=== PATIENT | male | born 1975 | race Asian ===

== ENCOUNTER 2020-05-23 01:43 | Emergency (ER) | payer SELFPAY ==
[~2020-05-23] VITALS: Ht 180.3 cm; Wt 86.2 kg
[2020-05-23 01:55] VITALS: BP_SYST 134
--- NOTE | 2020-05-23 01:55 | NUR ---
Patient to ER bed 5 to gown for evaluation. Side rails up. Report given to
--- NOTE | 2020-05-23 02:00 | NUR ---
PT AAO AND AMBULATORY C/O BACK INJURY WHILE CLEANING GYM EQUIPMENT. PT REPORTS PRIOR MUSCLE ISSUE ON LEFT BACK BUT REPORTS IT WORSENED TODAY DURING EXERTION. PT REPORTS 10/10 PAIN.
--- NOTE | 2020-05-23 02:22 | NUR ---
ER at bedside examining patient.
--- NOTE | 2020-05-23 03:00 | NUR ---
Pt resting in ED bed. No acute distress without movement. Pt tolerating supine position well.
[2020-05-23] MEDS ORDERED: DIAZEPAM 10 MG/2 ML DISP.SYRIN IM ONE (03:30)
[2020-05-23] MEDS ORDERED: HYDROcodone/ACETAMIN 10-325 MG TAB PO ONE (03:45)
[2020-05-23] MEDS ORDERED: IBUPROFEN 800 MG TABLET PO ONE (03:45)
[2020-05-23] MEDS ORDERED: LORazepam 2 MG/ML VIAL IM ONE (05:30)
--- NOTE | 2020-05-23 05:43 | NUR ---
Pt still unable to Move after medications. Pt states pain still 10/10
--- NOTE | 2020-05-23 07:12 | NUR ---
report received from Joel HASSAN. Currently waiting for admission orders.
[2020-05-23] MEDS ORDERED: KETAMINE 30 MG/3 ML SYRINGE IVP ONE (07:30)
--- NOTE | 2020-05-23 07:50 | NUR ---
Patient transported to radiology via gurney, accompanied by small electric engine technician.
[2020-05-23 07:53] LABS: BILIRUBIN,URINE NEGATIVE (NEGATIVE); BLOOD, URINE NEGATIVE (NEGATIVE); CLARITY/URINE CLEAR (CLEAR); COLOR,URINE YELLOW (YELLOW); GLUCOSE,URINE NEGATIVE (NEGATIVE); KETONES,URINE NEGATIVE (NEGATIVE); LEUKOCYTE ESTERASE ,URINE NEGATIVE (NEGATIVE); NITRITE, URINE NEGATIVE (NEGATIVE); PROTEIN URINE NEGATIVE (NEGATIVE); UROBILINOGEN,URINE 0.2 (0.2-1.0)
--- NOTE | 2020-05-23 08:00 | NUR ---
Ketamine currently infusing per MD order. Will reassess
[2020-05-23 08:49] LABS: BASOPHILS % (AUTO) 0.5 % (0.0-2.0); EOSINOPHILS # (AUTO) 0.1 K/uL (0.0-0.4); EOSINOPHILS % (AUTO) 1.5 % (0.0-4.0); HEMATOCRIT 43.9 % (36-54); HEMOGLOBIN 14.9 g/dL (14.0-18.0); LYMPHOCYTES # (AUTO) 1.5 K/uL (1.0-5.5); LYMPHOCYTES % (AUTO) 23.8 % (20.5-51.5); MEAN CORPUSCULAR HEMOGLOBIN 32 pg (27-31); MEAN CORPUSCULAR HGB CONC 34 % (32-36); MEAN CORPUSCULAR VOLUME 94 fL (79.0-98.0); MONOCYTES # (AUTO) 0.4 K/uL (0.0-1.0); MONOCYTES % (AUTO) 6.7 % (1.7-9.3); NEUTROPHILS # (AUTO) 4.1 K/uL (1.8-7.7); NEUTROPHILS % (AUTO) 67.5 % (40.0-70.0); PLATELET COUNT (AUTO) 222 K/uL (130-430); RED BLOOD CELL COUNT(AUTO) 4.68 MIL/uL (4.2-6.2); WHITE BLOOD COUNT (AUTO) 6.1 K/uL (4.8-10.8)
[2020-05-23 09:07] LABS: CALCIUM 8.6 mg/dL (8.4-11.0); CREATININE 1.06 mg/dL (0.55-1.30); POTASSIUM 3.9 mmol/L (3.5-5.1)
--- NOTE | 2020-05-23 11:19 | NUR ---
Patient transported to radiology via gurney, accompanied by hvac controls technician.
--- NOTE | 2020-05-23 12:00 | NUR ---
pt returned from MRI
[2020-05-23] MEDS ORDERED: methylPREDNISolone SOD SUCC/PF 62.5 MG/ML VIAL IVP ONE (13:15)
[2020-05-23] MEDS ORDERED: KETOROLAC TROMETHAMINE 30 MG VIAL IVP ONE (14:00)
--- NOTE | 2020-05-23 14:30 | NUR ---
medicated the pt w/ Toradol per MD order. Will reassess
[2020-05-23 15:30] VITALS: BP_SYST 119
--- NOTE | 2020-05-23 15:30 | NUR ---
Patient given written and verbal discharge instructions and verbalizes understanding. ER MD discussed with patient the results and treatment provided. Patient in stable condition. ID arm band removed. IV catheter removed intact and dressing applied, no active bleeding. Rx of Naprasyn given. Patient educated on pain management and to follow up with PMD. Pain Scale 3/10. Opportunity for questions provided and answered. Medication side effect fact sheet provided. Pt discharged w/ a responsible adult
== END 2020-05-23 15:30 | disposition home or self-care (01) ==
LOC: SED 01:43
DX: M54.5 Low back pain (principal)
CPT/HCPCS: 36415; 72128; 72131; 72148; 80048; 81003; 85025; 96365; 96372; 96375; 99285; J1885; J2060; J2930